=== PATIENT | female | born 1990 | race Two or more races ===

== ENCOUNTER 2017-10-31 04:06 | Inpatient (IN) | payer BC ==
[2017-10-31] MEDS ORDERED: Sodium Chloride 0.9% 10 ML Syringe FLUSH PRN (04:35)
[2017-10-31] MEDS ORDERED: Oxytocin/Lactated Ringers 10 UNIT/1,000 ML BAG IV SCH ×2 (04:45)
[2017-10-31] MEDS: Lactated Ringers 1,000 ML IV SCH ×4 (05:00→06:58)
[2017-10-31] MEDS ORDERED: ePHEDrine 50 MG/ML SDV IVPUSH PRN (05:27)
[2017-10-31] MEDS ORDERED: fentaNYL 100 MCG/2 ML SDV EPIDUR PRN (05:27)
[2017-10-31] MEDS ORDERED: diphenhydrAMINE 50 MG/ML SDV IVPUSH PRN (05:27)
[2017-10-31] MEDS ORDERED: Bupivacaine/fentaNYL/NS 100 ML Bag EPIDUR SCH (05:30)
--- NOTE | 2017-10-31 06:02 | PCM.PREANE ---
Preanesthetic Assessment - Anesthesia/Transfusion/Family Hx Anesthesia History: Prior Anesthesia Without Reaction Family History of Anesthesia Reaction: No Transfusion History: No Prior Transfusion(s) - Review of Systems General: No Symptoms Pulmonary: No Symptoms Cardiovascular: No Symptoms Gastrointestinal: No Symptoms Neurological: Numbness ("in back from previous epidural") Other: Reports: None - Physical Assessment Pulse: 72 O2 Sat by Pulse Oximetry: 100 Respiratory Rate: 15 Blood Pressure: 131/79 Temperature: 37.1 C Vital Signs: Last Vital Signs Temp 37.1 C 10/31/17 04:34 Pulse 72 10/31/17 04:34 Resp 15 10/31/17 04:34 BP 131/79 10/31/17 04:34 Pulse Ox 100 10/31/17 04:34 Height: 1.65 m Weight: 97.658 kg ASA Class: 2 Mental Status: Alert & Oriented x3 Airway Class: Mallampati = 1 Dentition: Reports: Normal Dentition Thyro-Mental Finger Breadths: 3 Mouth Opening Finger Breadths: 3 ROM/Head Extension: Full Lungs: Clear to Auscultation, Normal Respiratory Effort Cardiovascular: Regular Rate, Regular Rhythm - Lab Values: Laboratory Last Values WBC 10.68 K/mm3 (3.98-10.04) H 10/31/17 04:41 RBC 5.13 M/mm3 (3.98-5.22) 10/31/17 04:41 Hgb 11.8 gm/L (11.2-15.7) 10/31/17 04:41 Hct 36.1 % (34.1-44.9) 10/31/17 04:41 MCV 70.4 fl (79.4-94.8) L 10/31/17 04:41 MCH 23.0 pg (25.6-32.2) L 10/31/17 04:41 MCHC 32.7 g/dl (32.2-35.5) 10/31/17 04:41 RDW Std Deviation 40.4 fL (36.4-46.3) 10/31/17 04:41 Plt Count 166 K/mm3 (182-369) L 10/31/17 04:41 MPV 11.3 fl (9.4-12.3) 10/31/17 04:41 - Allergies Allergies/Adverse Reactions: Allergies Allergy/AdvReac Type Severity Reaction Status Date / Time No Known Allergies Allergy Verified 10/31/17 04:35 - Anesthesia Plan Pre-Op Medication Ordered: None - Acknowledgements Anesthesia Type Planned: Epidural Pt an Appropriate Candidate for the Planned Anesthesia: Yes Alternatives and Risks of Anesthesia Discussed w Pt/Guardian: Yes Pt/Guardian Understands and Agrees with Anesthesia Plan: Yes PreAnesthesia Questionnaire - Past Health History Medical/Surgical History: Denies Medical/Surgical History Gastrointestinal History: Reports: GERD Endocrine/Metabolic History: Reports: Hypoparathyroidism Hematologic History: Reports: Anemia - Past Surgical History GI Surgical History: Reports: None - CURRENT (IN HOUSE) MEDS Current Meds: Current Medications Diphenhydramine HCl (Benadryl) 25 mg IVPUSH Q6H PRN PRN Reason: Itching Ephedrine Sulfate (Ephedrine Sulfate) 5 mg IVPUSH ASDIRECTED PRN PRN Reason: HYPOTENTSION Fentanyl (Sublimaze) 100 mcg EPIDUR Q3H PRN PRN Reason: PAIN Last Admin: 10/31/17 05:51 Dose: 100 mcg Fentanyl/Bupivacaine HCl (Fentanyl/Bupivacaine/Ns 2 Mcg-0.125% 100 Ml) 100 ml EPIDUR ASDIRECTED FIDELIA Last Admin: 10/31/17 05:52 Dose: 100 ml Lactated Ringer's (Ringers, Lactated) 1,000 mls @ 100 mls/hr IV ASDIRECTED FIDELIA Last Admin: 10/31/17 05:00 Dose: 100 mls/hr Oxytocin/Lactated Ringer's (Pitocin In Lr 10 Units/1,000 Ml) 10 unit in 1,000 mls @ 100 mls/hr IV .CONTINUOUS FIDELIA Oxytocin/Lactated Ringer's (Pitocin In Lr 10 Units/1,000 Ml) 10 unit in 1,000 mls @ 12 mls/hr IV TITRATE FIDELIA; 2 MUNITS/MIN PRN Reason: Protocol Sodium Chloride (Saline Flush) 10 ml FLUSH ASDIRECTED PRN PRN Reason: Keep Vein Open
--- NOTE | 2017-10-31 07:14 | HP ---
DATE OF ADMISSION: 10/31/2017 ADMISSION DIAGNOSIS: A 39 and 0/7th week intrauterine , active labor, spontaneous rupture of membranes. HISTORY OF PRESENT ILLNESS: The patient is a 27-year-old, 2, para 1-0-0-1, female, who is seen in Labor and Delivery for spontaneous rupture of membranes. Had a large gush of fluid at approximately 0300 hours today. She is 2, para 1-0-0-1 with an AUBREY of 11/07/2017 as determined by an early ultrasound done on 05/03/2017 at 13 and 1/7th weeks gestational age. The patient is in active labor and progressing steadily. She is having good contractions. heart tones are reassuring. [employer] REMOVAL HISTORY: 2, para 1-0-0-1. Certain last menstrual period was not known. Ultrasound at first visit was used to date her . Her cycles are very irregular at q.30 to 60 days. She had menarche at age 6. She had 1 previous delivered on 01/09/2014 at 38 weeks gestational age after 23 hours of labor. She delivered a 6-pound 12-ounce female infant via normal spontaneous vaginal delivery at [facility]. Child's name is Inés. This course has been relatively unremarkable. She has had some anxiety and some depression for which she has done well and has not used any medications. She is hypothyroid and is on levothyroxine. She is clinically euthyroid at this time. Her Alexander depression screen score was 20/30 on 04/17/2017, but has improved. Her group B strep screen is negative. She has had some hemorrhoidal problems. She does have a Pap smear, which shows high-grade squamous intraepithelial lesion and was evaluated with colposcopy. Colposcopy is recommended after delivery. She also has a history of mild anemia for which she was started on iron therapy. Thyroid function studies during the course of her have been unremarkable. HISTORY: The patient's first visit was 03/12/2017. She was seen on a very regular basis. Her weight gain was from a 1st visit weight of 199.4 pounds up to 213.8 pounds for approximately a 15-pound weight gain. Her vital signs were stable throughout the course. Fundal height growth was appropriate. Baby has been active. LABORATORY TESTING: Shows her blood to be O positive with a negative antibody screen. Her first laboratory testing showed hemoglobin of 11.3, at which time she was started on iron therapy. Her MCV was 62.9 and her platelets were 365,000. Her Pap smear showed a high-grade squamous intraepithelial lesion for which she was evaluated with colposcopy. She is rubella immune. RPR is nonreactive. Culture was unremarkable. Hepatitis B and HIV assays were negative. Chlamydia and gonorrhea assays were both negative. Her TSH on 04/17/2017 was 2.634. Second trimester laboratory testing showed a hemoglobin of 10.6, at which time her iron therapy and supplementation was increased to b.i.d. Her MCV was still low at 69.5 and platelets were 279,000. Her 1-hour glucose tolerance test was normal at 120. Group B strep screen was negative at that time. ALLERGIES: None. CURRENT MEDICATIONS: 1. Hydrocortisone 2.5% external cream used occasionally for itching. 2. Ranitidine 150 mg b.i.d. 3. Gaviscon p.r.n. 4. vitamins daily. 5. Calcium 600 mg daily. 6. Iron 325 mg b.i.d. 7. Levothyroxine 112 mcg per day. 8. Folic acid caps daily. PAST MEDICAL HISTORY: 1. Normal spontaneous vaginal delivery, 01/09/2014. 2. Hypothyroidism, on replacement and clinically euthyroid. 3. Depression/anxiety symptoms, manageable. PAST SURGICAL HISTORY: Unremarkable. FAMILY HISTORY: One daughter, age 3, alive and well. The patient has no siblings. Mother is alive and well with some anxiety issues. Father is alive and well, also with some anxiety issues. Paternal grandfather secondary to prostate cancer. Maternal grandmother secondary to skin cancer. She has 1 cousin with autism. She denies any anesthesia, bleeding, blood clotting, or problems otherwise. SOCIAL HISTORY: The patient is . She is a homemaker. Her is Dev Miguel. She does not use any significant amounts of alcohol, drugs, or tobacco. She lives in [place], [place]. REVIEW OF SYSTEMS: SKIN: Negative. CARDIOVASCULAR: No chest pain or exercise intolerance. RESPIRATORY: No infectious symptoms or shortness of breath. BREASTS: Changes associated with . The patient does plan to nurse. GI: Normal diet, no complaints noted. : Changes associated with with increased fundal height. MUSCULOSKELETAL: Some edema in bilateral lower extremities on occasion. NEUROLOGICAL: Negative. PHYSICAL EXAMINATION: VITAL SIGNS: Her last blood pressure in clinic on 10/25/2017 was 118/76, heart rate was 144, and her weight was 213.8 pounds. Her pregravid weight was 197 pounds and her height is 5 feet 5 inches. Her prepregnancy BMI was 33.3. GENERAL: The patient is a well-developed, well-nourished, pleasant female, stated age, in no acute distress. SKIN: Warm and dry without lesions. LUNGS: Clear with good breath sounds in all lung das. CARDIOVASCULAR: Shows regular rate and rhythm without murmurs. ABDOMEN: Protuberant with with last fundal height at 39 cm, baby in vertex presentation by Alejandro maneuver. Cervix on last evaluation in the clinic was 3 cm, 80% effaced, -3 station, soft, mid position. EXTREMITIES: Show trace edema, otherwise were unremarkable. NEUROLOGICAL: Unremarkable grossly. ASSESSMENT: 1. A 39 and 0/7th week intrauterine with spontaneous rupture of membranes, active labor, and normal progression of labor. 2. Group B strep screen is negative. 3. The patient plans to breast feed. 4. Rubella titer is immune. PLAN: 1. Anticipate normal spontaneous vaginal delivery. 2. Support decision. 3. Epidural as desired by the patient. 4. The patient's abnormal Pap smear will be evaluated with colposcopy with possible biopsy in the period. MMODAL /[id number] BHAVESH
--- NOTE | 2017-10-31 08:47 | PCM.SN ---
- Free Text/Narrative Note: Delivery note: Alex is a 27-year-old 2 now para 2002 female 9-0/7 weeks gestational age with an AUBREY of 11/07/2017 who was admitted on a.m. of 2017 with spontaneous rupture of membranes at approximately 0330 hrs. She was in active labor and had progressed as far as cervical dilations concern. Epidural was used for labor and analgesia. She is tre every 3-5 minutes. Very rapidly after that to complete cervical dilation by approximately 15 hours. She began pushing and for contractions was able deliver a bull, vasquez male . Baby had Apgars of 8 and 9. Baby delivered at 0821 hrs., in a left occiput anterior position. Baby weighed 3990 g (8 pounds 12.7 ounces) , was 21.5 inches long. Baby was placed on mom's abdomen. Bulb suction was used to clear fluid from mouth. The cord was clamped 2 and then was cut by the baby' s father. The umbilical cord had 3 vessels. It was intact loosely O 28 hours. It was discarded. Patient plans to breast-feed. A first-degree perineal laceration was repaired with 3-0 Vicryl in routine fashion. Epidural was used for anesthesia.
[2017-10-31] MEDS ORDERED: Acetaminophen 325 MG Tab PO PRN (09:36)
[2017-10-31] MEDS ORDERED: Docusate Sodium 100 MG Cap PO PRN (09:36)
[2017-10-31] MEDS ORDERED: Benzocaine/Menthol 20%-0.5% Spray 56 GM Canister TOP PRN (09:36)
[2017-10-31] MEDS ORDERED: Witch Hazel Medicated Pads 100/Jar TOP PRN (09:36)
[2017-10-31] MEDS: Prenatal Multivitamin with Calcium/Folic Acid/Iron Tab PO SCH (11:08)
--- NOTE | 2017-10-31 16:06 | PCM48HPAN ---
Post Anesthesia Note - EVALUATION WITHIN 48HRS OF ANESTHETIC Vital Signs in Normal Range: Yes Patient Participated in Evaluation: Yes Respiratory Function Stable: Yes Airway Patent: Yes Cardiovascular Function Stable: Yes Hydration Status Stable: Yes Pain Control Satisfactory: Yes Nausea and Vomiting Control Satisfactory: Yes Mental Status Recovered: Yes (was pleased with epidural) Pulse Rate: 74 Resp Rate: 17 Temperature: 98.8 F Blood Pressure: 107/57
[2017-10-31] MEDS: Lanolin 100% Cream 7 GM Tube TOP PRN (17:02)
[2017-10-31] MEDS: Ibuprofen 600 MG Tab PO PRN (17:03)
[2017-10-31] MEDS ORDERED: Bupivacaine 0.25% 10 ML SDV ONE (22:22)
[2017-11-01] MEDS: Ibuprofen 600 MG Tab PO PRN ×3 (04:22→23:22)
[2017-11-01] MEDS: Prenatal Multivitamin with Calcium/Folic Acid/Iron Tab PO SCH (10:00)
--- NOTE | 2017-11-01 14:59 | PCM.SN ---
- Free Text/Narrative Note: General patient is doing well post day 1. Minimal lochia, voiding well, nursing without problems. Patient vital signs stable. She is afebrile. Abdomen is flat, soft, nontender, uterus at umbilicus. Legs nontender. Hemoglobin was 9.5 platelets 152 Assessment/plan: Post day 1 doing well. Routine care. Home tomorrow.
[2017-11-02 03:40] VITALS: BP 107/67
--- NOTE | 2017-11-02 05:44 | PCM.DCSUM1 ---
Discharge Summary - Hospital Course Free Text/Narrative:: Alex is a 27-year-old 2 now para 2002 female 9-0/7 weeks gestational age with an AUBREY of 11/07/2017 who was admitted on a.m. of 10/31/2017 with spontaneous rupture of membranes at approximately 0330 hrs. She was in active labor and had progressed as far as cervical dilations concern. Epidural was used for labor and analgesia. She is tre every 3-5 minutes. Very rapidly after that to complete cervical dilation by approximately 15 hours. She began pushing and for contractions was able deliver a bull, vasquez male . Baby had Apgars of 8 and 9. Baby delivered at 0821 hrs., in a left occiput anterior position. Baby weighed 3990 g (8 pounds 12.7 ounces), was 21.5 inches long. Baby was placed on mom's abdomen. Bulb suction was used to clear fluid from mouth. The cord was clamped 2 and then was cut by the baby's father. The umbilical cord had 3 vessels. It was intact loosely O 28 hours. It was discarded. Patient plans to breast-feed. A first-degree perineal laceration was repaired with 3-0 Vicryl in routine fashion. Epidural was used for anesthesia. patient has done well. Feels she is struggling with nursing however it is going fairly well. She has a cracked left nipple. She is using lanolin cream for this. In general patient is doing well. She is desiring discharge home today. - Discharge Data Discharge Date: 11/02/17 Discharge Disposition: Home, Self-Care 01 Condition: Good - Patient Instructions Diet: Regular Diet as Tolerated (Increased calcium and calories as directed for nursing) Activity: As Tolerated (No intercourse or tampons until bleeding resolves.) Driving: Do Not Drive (2 days.) Showering/Bathing: May Shower (May take a bath) Notify Provider of: Fever, Increased Pain, Swelling and Redness, Nausea and/or Vomiting - Discharge Plan Home Medications: Home Meds Ibuprofen [IJD: Ibuprofen] 600 mg PO Q4H PRN tablet 11/02/17 [Rx] Vit with Ca/FA/Iron [ Plus Iron] 1 each PO DAILY tablet [Rx] Referrals: Tonio Lujan MD [Primary Care Provider] - (Return to clinicDr. Lujan3 weeks.) - Discharge Summary/Plan Comment DC Time >30 min.: No Discharge Summary/Plan Comment: Discharge instructions: 1. Discharge home 2. Diet, activity and follow-up discussed with patient. Recommend nursing diet with increased calories and calcium. 3. Precautions given concern increased pain, bleeding, temperature, signs/ symptoms of DVT/PE. 4. Medications per home medication was printed, discussed with and given to the patient. 5. Return to clinic-Dr. Lujan[facility] in 3 weeks. Diagnosis: Term -delivered Condition: Good - Patient Data Vitals - Most Recent: Last Vital Signs Temp 36.9 C 11/02/17 03:34 Pulse 88 11/02/17 03:34 Resp 18 11/02/17 03:34 BP 107/67 11/02/17 03:34 Pulse Ox 99 11/02/17 03:34 Weight - Most Recent: 97.658 kg I&O - Last 24 hours: Intake & Output 11/01/17 11/01/17 11/02/17 14:59 22:59 06:59 Intake Total 360 1120 Balance 360 1120 Lab Results - Last 24 hrs: Laboratory Results - last 24 hr 11/01/17 Range/Units 07:06 WBC 12.11 H (3.98-10.04) K/mm3 RBC 4.16 (3.98-5.22) M/mm3 Hgb 9.5 L (11.2-15.7) gm/L Hct 30.0 L (34.1-44.9) % MCV 72.1 L (79.4-94.8) fl MCH 22.8 L (25.6-32.2) pg MCHC 31.7 L (32.2-35.5) g/dl RDW Std Deviation 40.3 (36.4-46.3) fL Plt Count 152 L (182-369) K/mm3 MPV 12.1 (9.4-12.3) fl Med Orders - Current: Current Medications Acetaminophen (Tylenol) 650 mg PO Q4H PRN PRN Reason: mild pain or fever Last Admin: 11/01/17 14:42 Dose: 650 mg Benzocaine/Menthol (Dermoplast Pain Relief [place]) 0 gm TOP ASDIRECTED PRN PRN Reason: Perineal Comfort Measure Last Admin: 10/31/17 11:08 Dose: 1 can Docusate Sodium (Colace) 100 mg PO BID PRN PRN Reason: Constipation Last Admin: 10/31/17 11:08 Dose: 100 mg Emollient Ointment (Lansinoh Hpa) 0 gm TOP ASDIRECTED PRN PRN Reason: Sore Nipples Last Admin: 10/31/17 17:02 Dose: 1 tube Ibuprofen (Motrin) 600 mg PO Q4H PRN PRN Reason: Mild pain or fever Last Admin: 11/01/17 23:22 Dose: 600 mg Prenat Multivit/[place]/Iron/Folic Ac ( Plus Iron) 1 each PO DAILY FIDELIA Last Admin: 11/01/17 10:00 Dose: 1 each Witch Sheron (Tucks) 1 pad TOP ASDIRECTED PRN PRN Reason: Hemorrhoid pain Last Admin: 10/31/17 11:08 Dose: 1 canister Discontinued Medications Bupivacaine HCl (Sensorcaine-Mpf 0.25%) 10 ml .ROUTE .STK-MED ONE Stop: 10/31/17 22:23 Diphenhydramine HCl (Benadryl) 25 mg IVPUSH Q6H PRN PRN Reason: Itching Ephedrine Sulfate (Ephedrine Sulfate) 5 mg IVPUSH ASDIRECTED PRN PRN Reason: HYPOTENTSION Fentanyl (Sublimaze) 100 mcg EPIDUR Q3H PRN PRN Reason: PAIN Last Admin: 10/31/17 05:51 Dose: 100 mcg Fentanyl/Bupivacaine HCl (Fentanyl/Bupivacaine/Ns 2 Mcg-0.125% 100 Ml) 100 ml EPIDUR ASDIRECTED FIDELIA Last Admin: 10/31/17 05:52 Dose: 100 ml Lactated Ringer's (Ringers, Lactated) 1,000 mls @ 100 mls/hr IV ASDIRECTED FIDELIA Last Admin: 10/31/17 06:58 Dose: 100 mls/hr Oxytocin/Lactated Ringer's (Pitocin In Lr 10 Units/1,000 Ml) 10 unit in 1,000 mls @ 100 mls/hr IV .CONTINUOUS FIDELIA Oxytocin/Lactated Ringer's (Pitocin In Lr 10 Units/1,000 Ml) 10 unit in 1,000 mls @ 12 mls/hr IV TITRATE FIDELIA; 2 MUNITS/MIN PRN Reason: Protocol Sodium Chloride (Saline Flush) 10 ml FLUSH ASDIRECTED PRN PRN Reason: Keep Vein Open *Q Meaningful Use (DIS) - VTE *Q VTE Criteria *Q: - Stroke *Q Stroke Criteria *Q: - AMI *Q AMI Criteria *Q:
[2017-11-02] MEDS: Ibuprofen 600 MG Tab PO PRN (08:25)
[2017-11-02] MEDS: Prenatal Multivitamin with Calcium/Folic Acid/Iron Tab PO SCH (08:25)
[2017-11-02] MEDS: Lanolin 100% Cream 7 GM Tube TOP PRN (11:36)
== END 2017-11-02 10:41 | disposition home or self-care (01) | DRG 560 ==
LOC: JD.OBCHECK 04:06 → JD.OB 04:06 → JD.OBCHECK 04:34 → UNDOADMOB 04:35 → JD.OB 04:35 → JD.MS 08:21 → OBSVTOIN 08:21 → JD.OB 14:29
PROVIDERS: ADMIT Obstetrics & Gynecology; ATTEND Obstetrics & Gynecology
PROC: 10E0XZZ Delivery of Products of Conception, External Approach (ICD-10-PCS; principal; 2017-10-31)
PROC: 0HQ9XZZ Repair Perineum Skin, External Approach (ICD-10-PCS; 2017-10-31)
PROC: 00HU33Z Insertion of Infusion Device into Spinal Canal, Percutaneous Approach (ICD-10-PCS; 2017-10-31)
PROC: 3E0R3BZ Introduction of Anesthetic Agent into Spinal Canal, Percutaneous Approach (ICD-10-PCS; 2017-10-31)
DX: O42.02 Full-term premature rupture of membranes, onset of labor within 24 hours of rupture (principal); O99.284 Endocrine, nutritional and metabolic diseases complicating childbirth; E03.9 Hypothyroidism, unspecified; O70.0 First degree perineal laceration during delivery; Z3A.39 39 weeks gestation of pregnancy; Z37.0 Single live birth
CPT/HCPCS: 36415; 59300; 59409; 85027; A9270-GY; J3010; J7120